=== PATIENT | male | born 2000 | race Caucasian/White ===

== ENCOUNTER 2018-12-08 09:10 | Emergency (ER) | payer OTHER ==
[~2018-12-08] VITALS: Wt 60.0 kg
[~2018-12-08 09:10] MED LIST: AMOX500C2 PO; IBUP-1542 PO
[2018-12-08 09:12] VITALS: BP 131/86; PULSE 68; RESP 20
[2018-12-08] MEDS ORDERED: DIAZEPAM 5 MG TAB PO ONE (10:00)
[2018-12-08] MEDS ORDERED: HYDROCODONE/APAP (5/325) TAB PO ONE (10:00)
[2018-12-08] MEDS ORDERED: VAL2 PO (10:04)
[2018-12-08] MEDS ORDERED: IBUP-1542 PO (10:04)
--- NOTE | 2018-12-08 10:08 | ERD ---
ER Documentation Chief Complaint Chief Complaint neck pain for 2 days getting worse. no trauma no deuro def or fever HPI This is a 18-year-old male with a nonsignificant past medical history presents ED with neck pain times 5 days. Patient states that he woke up with right-sided neck pain and admits to difficulty turning his head to the left-hand side. Patient denies any fall or injury to account for pain. Patient believes that he slept funny and that is what caused the pain. Denies fever, chills, tingling, numbness, lack sensation, weakness, headache, blurry vision, changes in vision, and all other symptoms. No known drug allergies. ROS All systems reviewed and are negative except as per history of present illness. Medications Home Meds Active Scripts Ibuprofen* (Motrin*) 600 Mg Tab, 600 MG PO Q6, #30 TAB Prov:NYASIA GUERRA PA-C 12/08/18 Diazepam* (Valium*) 2 Mg Tab, 2 MG PO BID, #7 TAB Prov:NYASIA GUERRA PA-C 12/08/18 Ibuprofen* (Motrin*) 600 Mg Tab, 600 MG PO Q6, #30 TAB Prov:LEOLA MOROCHO PA-C 10/27/18 Amoxicillin* (Amoxicillin*) 500 Mg Cap, 500 MG PO BID for 7 Days, CAP Prov:LEOLA MOROCHO PA-C 10/27/18 Allergies Allergies: Coded Allergies: No Known Allergy (Unverified , 10/27/18) PMhx/Soc Medical and Surgical Hx: pt denies Medical Hx, pt denies Surgical Hx Hx Alcohol Use: No Hx Substance Use: No Hx Tobacco Use: No Smoking Status: Never smoker FmHx Family History: No diabetes Physical Exam Vitals Vital Signs Date Temp Pulse Resp B/P (MAP) Pulse Ox O2 O2 Flow FiO2 Time Delivery Rate 12/08/18 98.1 68 20 131/86 99 09:12 (101) Physical Exam Physical Exam Vitals signs: Reviewed by me. General: Well developed, well nourished, in no acute distress. Patient is awake and alert. Head: Normocephalic, atraumatic. Eyes: Normal conjunctiva, Pupils PERRLA, EOM intact grossly ENT: Pharynx is clear, Moist mucous membranes, external ears, nose and mouth normal Neck: Supple, no masses, lymphadenopathy or JVD, no cervical midline tenderness, mild tenderness to palpation along the right paravertebral muscles, muscle spasm present, pain elicited with left lateral rotation and decreased range of motion with left lateral rotation, full range of motion with flexion extension and right lateral rotation Respiratory: Clear to auscultation bilaterally with no wheezing, rhonchi, rales, no distress Cardiovascular: RRR, no murmurs, rubs, or gallops : Deferred MSK: No edema, no unilateral swelling, 5/5 strength Back: No midline tenderness. No flank tenderness Neurologic: Alert and oriented, moving all extremities, normal speech, no focal weakness, no cerebellar signs. Normal mentation Cranial nerves II through XII intact bilaterally Neuro: M/S: Alert and oriented Face: EOMI, face and pharynx with normal sensation and function Motor: Normal strength throughout Sensation: Normal sensation throughout Speech: Normal Cerebel: Normal coordination Normal gait Normal finger to nose DTR: 2+ and symmetric upper/lower extremities Skin: warm and dry, No rash Psych: Normal mood Results 24 hrs Current Medications Medications Dose Sig/Elfego Start Time Status Last (Trade) Ordered Route PRN Stop Time Admin Dose Reason Admin Diazepam 5 mg ONCE ONCE 12/08/18 DC 12/08/18 (Valium) PO 10:00 09:49 12/08/18 10:01 1 tab ONCE ONCE 12/08/18 DC 12/08/18 Acetaminophen PO 10:00 09:49 / 12/08/18 10:01 Hydrocodone Bitart ([place] (5/325)) Procedures/MDM ER COURSE: The patient was given [place] and Valium for pain The medication was well tolerated and the patient reports improvement in symptoms. The patient was stable throughout ED course. I kept the patient and/or family informed of laboratory and diagnostic imaging results throughout the emergency room course. The patient was promptly evaluated and a treatment plan was devised based on H&P and other data. This plan was discussed with the patient who agreed and had no further questions or concerns prior to discharge. MEDICAL DECISION MAKIN-year-old male presents ED with right-sided neck pain times 5 days. This is likely pain due to muscle spasm. History and physical examination other data not consistent with emergent processes including but not limited to fracture, subluxation, spinal cord injury, carotid / vertebral dissection, cauda equina syndrome, cord compression, infiltrative etiology, infectious etiology, epidural abscess, intracranial hemorrhage, among others. Patient's vitals are stable and he can be managed close outpatient follow-up. Advised patient follow-up with primary care next 48 hours. Return to ED with any worsening symptoms. DISPOSITION PLAN: We discussed follow up with the patient's primary care doctor within 24 to 48 hours. Patient counseled regarding my diagnostic impression and care plan. Prior to discharge all questions answered. Pt agrees with treatment plan and understands strict return precautions. Precautionary instructions provided including instructions to return to the ER if not improving or for any worsening or changing symptoms or concerns. SPECIALIST FOLLOW UP RECOMMENDED: None Patient has been advised to follow up with primary care in 1-2 days. Disclaimer: Inadvertent spelling and grammatical errors are likely due to EHR/dictation software use and do not reflect on the overall quality of patient care. Also, please note that the electronic time recorded on this note does not necessarily reflect the actual time of the patient encounter. Blood Pressure Assessment: Patient's blood pressure was elevated (>120/80) but appears stable without evidence of hypertension emergency or urgency. The patient was counseled about the risks of hypertension and urged to pursue outpatient monitoring and therapy within a week with their primary care ruchi Lindsey Diagnosis: Primary Impression: Neck pain Condition: Stable Patient Instructions: Neck Pain, No Trauma, Neck Sprain/Strain, Neck Spasm, No Trauma Referrals: [facility], [facility] YOU HAVE RECEIVED A MEDICAL SCREENING EXAM AND THE RESULTS INDICATE THAT YOU DO NOT HAVE A CONDITION THAT REQUIRES URGENT TREATMENT IN THE EMERGENCY DEPARTMENT. FURTHER EVALUATION AND TREATMENT OF YOUR CONDITION CAN WAIT UNTIL YOU ARE SEEN IN YOUR DOCTORS OFFICE WITHIN THE NEXT 1-2 DAYS. IT IS YOUR RESPONSIBILITY TO MAKE AN APPOINTMENT FOR FOL- CARE. IF YOU HAVE A PRIMARY DOCTOR --you should call your primary doctor and schedule an appointment IF YOU DO NOT HAVE A PRIMARY DOCTOR YOU CAN CALL OUR PHYSICIAN REFERRAL HOTLINE AT IF YOU CAN NOT AFFORD TO SEE A PHYSICIAN YOU CAN CHOSE FROM THE FOLLOWING [facility], [facility] [address] [facility] [address] [facility] [address] [address] [facility] [address] [facility]. [facility] [address] Additional Instructions: Patient advised to return to the ED immediately for new or worsening symptoms. Patient advised to follow up with primary care provider in the next 24-48 hours. Patient verbalized understanding and agrees with treatment plan and course of action. If patient has no primary care they may follow up with one of the community clinics listed on the following page or one of the options listed below [facility] + [facility] [address] [place] [id number] [facility] [address] [place] [address] or [facility] [address] [place] [address] NYASIA GUERRA PA-C Dec 08, 2018 10:08
== END 2018-12-08 10:11 | disposition home or self-care (01) ==
LOC: FTE 09:10
DX: M54.2 Cervicalgia (principal)
CPT/HCPCS: Z7502; Z7610; 99283

== ENCOUNTER 2018-12-11 11:15 | Emergency (ER) | payer OTHER ==
[~2018-12-11] VITALS: Wt 75.0 kg
[~2018-12-11 11:15] MED LIST changes: +VAL2 PO
[2018-12-11] MEDS ORDERED: KETOROLAC 60 MG INJ IM STA (12:16)
[2018-12-11] MEDS ORDERED: DIAZEPAM 5 MG TAB PO ONE (12:30)
[2018-12-11] MEDS ORDERED: NAPR-985 PO (13:53)
[2018-12-11] MEDS ORDERED: HYDR-4011 PO (13:53)
[2018-12-11] MEDS ORDERED: CYCL10TA7 PO (13:53)
--- NOTE | 2018-12-11 14:00 | ERD ---
ER Documentation Chief Complaint Chief Complaint NECK PAIN/SPASM HPI 18-year-old male presenting with neck pain times 1 week. Patient was seen here a week ago and given ibuprofen with no alleviation of symptoms. Patient has been to a chiropractor with no alleviation of neck pain. He states that it hurts with rotational movement. He denies any traumatic injury. Denies any numbness or tingling down his arms. Denies other medical problems. NKDA. Surgical history denies. Social history denies ROS All systems reviewed and are negative except as per history of present illness. Medications Home Meds Active Scripts Cyclobenzaprine Hcl* (Cyclobenzaprine Hcl*) 10 Mg Tablet, 10 MG PO TID, #15 TAB Prov:YAZAN AVILA PA-C 12/11/18 Naproxen* (Naprosyn*) 500 Mg Tablet, 500 MG PO BID PRN for PAIN AND/OR INFLAMMATION, #30 TAB Prov:YAZAN AVILA PA-C 12/11/18 Hydrocodone/Acetaminophen ([place] 5-325 Tablet) 1 Each Tablet, 1 TAB PO Q6H PRN for PAIN, #7 TAB Prov:YAZAN AVILA PA-C 12/11/18 Ibuprofen* (Motrin*) 600 Mg Tab, 600 MG PO Q6, #30 TAB Prov:NYASIA GUERRA PA-C 12/08/18 Diazepam* (Valium*) 2 Mg Tab, 2 MG PO BID, #7 TAB Prov:NYASIA GUERRA PA-C 12/08/18 Ibuprofen* (Motrin*) 600 Mg Tab, 600 MG PO Q6, #30 TAB Prov:LEOLA MOROCHO PA-C 10/27/18 Amoxicillin* (Amoxicillin*) 500 Mg Cap, 500 MG PO BID for 7 Days, CAP Prov:LEOLA MOROCHO PA-C 10/27/18 Allergies Allergies: Coded Allergies: No Known Allergy (Unverified , 10/27/18) PMhx/Soc Medical and Surgical Hx: pt denies Medical Hx, pt denies Surgical Hx Hx Alcohol Use: No Hx Substance Use: No Hx Tobacco Use: No Smoking Status: Never smoker FmHx Family History: No diabetes, No coronary disease, No other Physical Exam Vitals Vital Signs Date Temp Pulse Resp B/P (MAP) Pulse Ox O2 O2 Flow FiO2 Time Delivery Rate 12/11/18 98.1 79 18 145/89 99 11:21 (107) Physical Exam GENERAL: The patient is well-appearing, well-nourished, in no acute distress HEENT: Atraumatic. Conjunctivae are pink. Pupils equal, round, and reactive to light. There is no scleral icterus. Tympanic membranes clear bilaterally. NECK: C-spine is soft and supple. There is no meningismus. There is no cerv ical lymphadenopathy. Tender to palpation over bilateral paraspinous muscles of the cervical spine with limited range of motion. CHEST: Clear to auscultation bilaterally. There are no rales, wheezes or rhonchi. HEART: Regular rate and rhythm. No murmurs, clicks, rubs or gallops. EXTREMITIES: Equal pulses bilaterally. There is no peripheral clubbing, cyanosis or edema. No focal swelling or erythema. Full range of motion. NEUROLOGIC: Alert and oriented. Cranial nerves II through XII intact. Motor strength in all 4 extremities with 5 out of 5 strength. Sensation grossly intact. Results 24 hrs Current Medications Medications Dose Sig/Elfego Start Time Status Last (Trade) Ordered Route PRN Stop Time Admin Dose Reason Admin Ketorolac 60 mg ONCE STAT 12/11/18 DC 12/11/18 Tromethamine IM 12:16 12:33 (Toradol) 12/11/18 12:17 Diazepam 5 mg ONCE ONCE 12/11/18 DC 12/11/18 (Valium) PO 12:30 12:33 12/11/18 12:31 Procedures/MDM PROCEDURE: XR Cervical Spine. CLINICAL INDICATION: pain TECHNIQUE: AP, lateral and odontoid views of the cervical spine were performed. The images were reviewed on a PACS workstation. COMPARISON: None. FINDINGS: There is reversal of the cervical lordosis. The vertebral body alignment, height and osseous mineralization are normal. The intervertebral disc spaces are well maintained. There are no abnormal calcifications. The prevertebral soft tissues are normal. No radiopaque foreign bodies are identified. There is no acute fracture or subluxation. RPTAT: AA IMPRESSION: Reversal of the cervical lordosis. ER Course: Valium given in ED. Toradol given in ED MDM: 18-year-old male presenting with neck pain. Chest x-ray shows findings consistent with cervical spasm. I have low suspicion for acute fracture dislocation. I have low suspicion for nerve deficit. Patient is discharged with stronger medications to help alleviate spasming muscles. Patient is told to follow-up with primary care. He may need to follow-up with orthopedist. All questions answered at discharge Departure Diagnosis: Primary Impression: Neck muscle spasm Condition: Stable Patient Instructions: Neck Sprain/Strain Referrals: JOSE GUTHRIE MD [facility] Hours: Sun-Sun 9:00 AM - 5:00 PM Additional Instructions: FOLLOW UP WITH YOUR PRIMARY CARE PHYSICIAN TOMORROW.Return to this facility if you are not improving as expected. YAZAN AVILA PA-C Dec 11, 2018 14:00
[2018-12-11 14:11] VITALS: BP 131/74; PULSE 71; RESP 18
== END 2018-12-11 14:10 | disposition home or self-care (01) ==
LOC: FTE 11:15
DX: M62.838 Other muscle spasm (principal)
CPT/HCPCS: 72040; 96372; J1885; Z7502; Z7610